=== PATIENT | male | born 1960 | race Caucasian/White ===

== ENCOUNTER 2017-08-13 13:53 | Inpatient (IN) | payer OTHER ==
[2017-08-13] VITALS (12 sets, daily range): BP systolic 136–204; BP diastolic 71–97; PULSE 83–130; RESP 14–21; TEMP 97.9–98.6; O2SAT 94–100
[~2017-08-13] VITALS: Ht 175.3 cm; Wt 125.3 kg
[2017-08-13] MEDS ORDERED: ceFAZolin 2 GM PREMIX 50 ML IV ONE (14:15)
[2017-08-13] MEDS ORDERED: SODIUM CHLOR 0.9% 1000 ML INJ 1,000 ML IV SCH (14:15)
[2017-08-13] MEDS ORDERED: HYDROmorphone HCL PF 1 MG/ML VIAL IVS ONE (14:15)
[2017-08-13] MEDS ORDERED: ONDANSETRON HCL 4 MG/2 ML VIAL IVP ONE (14:15)
[2017-08-13] MEDS ORDERED: TETANUS/DIPHTHERIA TOXOID ADULT 0.5 ML VIAL IM ONE (14:15)
[2017-08-13] MEDS ORDERED: SODIUM CHLORIDE 0.9% FLUSH 10 ML FLUSH IV FLUSH PRN (14:15)
[2017-08-13] MEDS ORDERED: KETAMINE HCL 500 MG/10 ML VIAL OTHER STA (14:15)
[2017-08-13] MEDS ORDERED: HYDROmorphone HCL PF 2 MG/ML VIAL IV ONE (14:45)
[2017-08-13 14:57] LABS: AUTOMATED NEUTROPHIL # 6.4 TH/MM3 (1.8-7.7); BASOPHIL # 0.1 TH/MM3 (0-0.2); BASOPHIL % 0.6 % (0.0-2.0); EOSINOPHIL # 0.1 TH/MM3 (0-0.4); EOSINOPHIL % 1.4 % (0.0-4.0); HEMATOCRIT 22.5 % (39.0-51.0); LYMPH % 22.8 % (9.0-44.0); LYMPHOCYTE # 2.1 TH/MM3 (1.0-4.8); MEAN CELL VOLUME 59.7 FL (80.0-100.0); MEAN CORPUSCULAR HEMOGLOBIN 17.5 PG (27.0-34.0); MEAN PLATELET VOLUME 9.1 FL (7.0-11.0); MONO % 6.4 % (0.0-8.0); MONOCYTE # 0.6 TH/MM3 (0-0.9); NEUT % 68.8 % (16.0-70.0); PLATELET COUNT 384 TH/MM3 (150-450); RED BLOOD COUNT 3.77 MIL/MM3 (4.50-5.90); RED CELL DISTRIBUTION WIDTH 19.3 % (11.6-17.2); WHITE BLOOD COUNT 9.3 TH/MM3 (4.0-11.0)
[2017-08-13] MEDS ORDERED: CEFAZOLIN IV ONE (15:00)
[2017-08-13] MEDS ORDERED: NS IV ONE (15:00)
[2017-08-13 15:26] LABS: MEAN CORPUSCULAR HGB CONC 29.3 % (32.0-36.0)
[2017-08-13 15:29] LABS: HEMOGLOBIN 6.6 GM/DL (13.0-17.0)
[2017-08-13] MEDS ORDERED: SODIUM CHLOR 0.9% 250 ML INJ 250 ML IV ONE (15:30)
[2017-08-13 15:35] LABS: ALBUMIN 3.9 GM/DL (3.4-5.0); ALT (GPT) 19 U/L (12-78); AST (GOT) 21 U/L (15-37); BICARBONATE 21.7 MEQ/L (21.0-32.0); BLOOD UREA NITROGEN 15 MG/DL (7-18); CALCIUM 9.2 MG/DL (8.5-10.1); CHLORIDE 104 MEQ/L (98-107); CREATININE 1.12 MG/DL (0.60-1.30); GLOMERULAR FILTRATION RATE 68 ML/MIN (>89); GLUCOSE,RANDOM 233 MG/DL (74-106); SODIUM (NA) 137 MEQ/L (136-145)
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
[2017-08-13 15:53] LABS: ALKALINE PHOSPHATASE 73 U/L (45-117); TOTAL BILIRUBIN ADULT 0.6 MG/DL (0.2-1.0); TOTAL PROTEIN 7.7 GM/DL (6.4-8.2); TROPONIN I LESS THAN 0.02 NG/ML (0.02-0.05)
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
[2017-08-13] MEDS ORDERED: COZA100T PO (16:50)
[2017-08-13] MEDS ORDERED: METF1000 PO (16:50)
[2017-08-13] MEDS ORDERED: GLYB5TAB3 PO (16:50)
[2017-08-13] MEDS ORDERED: PRAV40TA PO (16:50)
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
[2017-08-13] MEDS ORDERED: HYDROmorphone HCL PF 1 MG/ML VIAL IV PUSH ONE (18:15)
[2017-08-13] MEDS ORDERED: IOHEXOL 350 MG/ML 10 ML VIAL (for RAD DIAG) IVCONTRAST ONE (18:22)
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
[2017-08-13 19:37] LABS: MAGNESIUM 1.4 MG/DL (1.5-2.5)
[2017-08-13] MEDS ORDERED: GLUCAGON 1 MG/ML VIAL OTHER PRN (20:45)
[2017-08-13] MEDS ORDERED: NALOXONE HCL 0.4 MG/ML AMP IV PUSH PRN (20:45)
[2017-08-13] MEDS ORDERED: DEXTROSE 50% IN WATER 50 ML VIAL(D50) IV PUSH PRN (20:45)
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
[2017-08-13] MEDS: SODIUM CHLORIDE 0.9% FLUSH 10 ML FLUSH IV FLUSH SCH (21:00)
[2017-08-13] MEDS ORDERED: ONDANSETRON HCL 4 MG/2 ML VIAL IVP PRN (22:00)
[2017-08-13] MEDS ORDERED: ACETAMINOPHEN 325 MG TAB PO PRN (22:00)
[2017-08-13] MEDS ORDERED: BISACODYL 10 MG SUPP RECTAL PRN (22:00)
[2017-08-13] MEDS ORDERED: SENNOSIDES 8.6 MG TAB PO PRN (22:00)
[2017-08-13] MEDS: DOCUSATE SODIUM 50 MG/SENNA 8.6 MG TAB PO SCH (22:00)
[2017-08-13] MEDS: INSULIN ASPART SUPPLEMENTAL SCALE SQ SCH (22:00)
[2017-08-13] MEDS: HYDROmorphone HCL PF 2 MG/ML VIAL IV PUSH PRN (22:04)
[2017-08-13] MEDS: MAGNESIUM SULFATE 1 GM PREMIX 100 ML IV SCH (22:29)
[2017-08-13] MEDS: SODIUM CHLOR 0.9% 1000 ML INJ 1,000 ML IV SCH (22:29)
[2017-08-14] MEDS: MAGNESIUM SULFATE 1 GM PREMIX 100 ML IV SCH (00:27)
[2017-08-14] MEDS: CEPHALEXIN MONOHYDRATE 500 MG CAP PO SCH ×4 (00:27→17:49)
[2017-08-14 01:04] VITALS: BP 172/81; PULSE 116; RESP 18; TEMP 97.8; O2SAT 97
[2017-08-14] MEDS: HYDROmorphone HCL PF 2 MG/ML VIAL IV PUSH PRN ×5 (01:07→21:35)
[2017-08-14] MEDS ORDERED: HYDROmorphone HCL PF 2 MG/ML VIAL IV ONE (02:00)
[2017-08-14 05:10] VITALS: BP 168/80; PULSE 116; RESP 18; TEMP 97.9; O2SAT 98
[2017-08-14] MEDS: SODIUM CHLOR 0.9% 1000 ML INJ 1,000 ML IV SCH ×3 (05:12→22:00)
[2017-08-14 06:11] LABS: AUTOMATED NEUTROPHIL # 7.7 TH/MM3 (1.8-7.7); BASOPHIL # 0.1 TH/MM3 (0-0.2); BASOPHIL % 0.6 % (0.0-2.0); EOSINOPHIL # 0.1 TH/MM3 (0-0.4); EOSINOPHIL % 0.8 % (0.0-4.0); HEMATOCRIT 27.4 % (39.0-51.0); HEMOGLOBIN 8.5 GM/DL (13.0-17.0); LYMPH % 17.3 % (9.0-44.0); LYMPHOCYTE # 1.8 TH/MM3 (1.0-4.8); MEAN CELL VOLUME 64.5 FL (80.0-100.0); MEAN PLATELET VOLUME 8.8 FL (7.0-11.0); MONO % 8.6 % (0.0-8.0); MONOCYTE # 0.9 TH/MM3 (0-0.9); NEUT % 72.7 % (16.0-70.0); PLATELET COUNT 360 TH/MM3 (150-450); RED BLOOD COUNT 4.24 MIL/MM3 (4.50-5.90); RED CELL DISTRIBUTION WIDTH 23.3 % (11.6-17.2); WHITE BLOOD COUNT 10.6 TH/MM3 (4.0-11.0)
[2017-08-14 07:03] LABS: ALBUMIN 3.9 GM/DL (3.4-5.0); ALKALINE PHOSPHATASE 79 U/L (45-117); ALT (GPT) 18 U/L (12-78); AST (GOT) 15 U/L (15-37); BICARBONATE 24.2 MEQ/L (21.0-32.0); BLOOD UREA NITROGEN 12 MG/DL (7-18); CALCIUM 8.6 MG/DL (8.5-10.1); CHLORIDE 105 MEQ/L (98-107); CREATININE 0.84 MG/DL (0.60-1.30); GLOMERULAR FILTRATION RATE 94 ML/MIN (>89); GLUCOSE,RANDOM 185 MG/DL (74-106); SODIUM (NA) 140 MEQ/L (136-145); TOTAL BILIRUBIN ADULT 0.7 MG/DL (0.2-1.0); TOTAL PROTEIN 7.8 GM/DL (6.4-8.2); TROPONIN I LESS THAN 0.02 NG/ML (0.02-0.05)
[2017-08-14 08:19] VITALS: BP 170/79; PULSE 112; RESP 18; TEMP 98.1; O2SAT 93
[2017-08-14] MEDS: DOCUSATE SODIUM 50 MG/SENNA 8.6 MG TAB PO SCH ×2 (08:22→20:20)
[2017-08-14] MEDS: PRAVASTATIN SOD 40 MG TAB PO SCH (08:23)
[2017-08-14] MEDS: INSULIN ASPART SUPPLEMENTAL SCALE SQ SCH ×4 (08:23→21:00)
[2017-08-14] MEDS: LOSARTAN 50 MG TAB PO SCH (08:23)
[2017-08-14] MEDS: SODIUM CHLORIDE 0.9% FLUSH 10 ML FLUSH IV FLUSH SCH ×2 (08:24→21:00)
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
[2017-08-14 12:53] VITALS: BP 152/59; PULSE 105; RESP 20; TEMP 98; O2SAT 95
[2017-08-14 13:18] LABS: INTERNATIONAL NORMALIZED RATIO 1.1 RATIO; PROTHROMBIN TIME - PATIENT 11.4 SEC (9.8-11.6)
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
[2017-08-14 17:56] VITALS: BP 146/68; PULSE 114; RESP 20; TEMP 98.1; O2SAT 96
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
[2017-08-14 21:51] VITALS: BP 187/84; PULSE 116; RESP 16; TEMP 99.1; O2SAT 97
[2017-08-15] VITALS (7 sets, daily range): BP systolic 137–178; BP diastolic 65–83; PULSE 105–114; RESP 14–18; TEMP 98–98.6; O2SAT 93–99
[2017-08-15] MEDS: HYDROmorphone HCL PF 2 MG/ML VIAL IV PUSH PRN ×7 (00:46→22:03)
[2017-08-15] MEDS: CEPHALEXIN MONOHYDRATE 500 MG CAP PO SCH ×4 (05:51→18:19)
[2017-08-15] MEDS: SODIUM CHLORIDE 0.9% FLUSH 10 ML FLUSH IV FLUSH SCH ×2 (08:27→20:03)
[2017-08-15] MEDS: PRAVASTATIN SOD 40 MG TAB PO SCH (08:27)
[2017-08-15] MEDS: LOSARTAN 50 MG TAB PO SCH (08:27)
[2017-08-15] MEDS: DOCUSATE SODIUM 50 MG/SENNA 8.6 MG TAB PO SCH ×2 (08:29→20:03)
[2017-08-15] MEDS: INSULIN ASPART SUPPLEMENTAL SCALE SQ SCH ×4 (09:17→21:14)
--- NOTE | 2017-08-15 11:42 | EKG ---
Date Performed: 08/13/2017 Time Performed: 19:10:23 PTAGE: 57 years EKG: SINUS TACHYCARDIA ABNORMAL QRS-T ANGLE ABNORMAL ECG NO PREVIOUS TRACING Minimal nonspecific inferior T-wave changes DOCTOR: Paula Peters Interpretating Date/Time 08/15/2017 11:41:42
--- NOTE | 2017-08-15 11:43 | EKG ---
Date Performed: 08/14/2017 Time Performed: 02:49:57 PTAGE: 57 years EKG: SINUS TACHYCARDIA MODERATE INTRAVENTRICULAR CONDUCTION DELAY ABNORMAL QRS-T ANGLE ABNORMAL ECG PREVIOUS TRACING : 08/13/2017 20.50 Minimal nonspecific inferior T-wave changes. No significant serial change from the prior tracing. DOCTOR: Paula Peters Interpretating Date/Time 08/15/2017 11:42:39
--- NOTE | 2017-08-15 11:43 | EKG ---
Date Performed: 08/13/2017 Time Performed: 20:50:42 PTAGE: 57 years EKG: SINUS TACHYCARDIA ABNORMAL RHYTHM ECG PREVIOUS TRACING : 08/13/2017 19.10 Minimal nonspecific inferior T-wave changes. Since prior tr acing, no significant serial changes. DOCTOR: Paula Peters Interpretating Date/Time 08/15/2017 11:42:11
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
[2017-08-15 12:43] LABS: AUTOMATED NEUTROPHIL # 7.4 TH/MM3 (1.8-7.7); BASOPHIL # 0.1 TH/MM3 (0-0.2); BASOPHIL % 0.7 % (0.0-2.0); EOSINOPHIL # 0.1 TH/MM3 (0-0.4); EOSINOPHIL % 0.7 % (0.0-4.0); HEMATOCRIT 24.6 % (39.0-51.0); HEMOGLOBIN 7.5 GM/DL (13.0-17.0); LYMPH % 14.3 % (9.0-44.0); LYMPHOCYTE # 1.4 TH/MM3 (1.0-4.8); MEAN CELL VOLUME 63.6 FL (80.0-100.0); MEAN CORPUSCULAR HEMOGLOBIN 19.5 PG (27.0-34.0); MEAN CORPUSCULAR HGB CONC 30.7 % (32.0-36.0); MEAN PLATELET VOLUME 8.6 FL (7.0-11.0); MONO % 10.2 % (0.0-8.0); NEUT % 74.1 % (16.0-70.0); PLATELET COUNT 316 TH/MM3 (150-450); RED BLOOD COUNT 3.87 MIL/MM3 (4.50-5.90); RED CELL DISTRIBUTION WIDTH 23.9 % (11.6-17.2)
[2017-08-15 13:15] LABS: ALBUMIN 3.4 GM/DL (3.4-5.0); BICARBONATE 28.1 MEQ/L (21.0-32.0); CALCIUM 8.6 MG/DL (8.5-10.1); CREATININE 0.78 MG/DL (0.60-1.30); MAGNESIUM 1.9 MG/DL (1.5-2.5)
--- NOTE | 2017-08-15 14:14 | OTSOAPIP ---
RECEIVED OCCUPATIONAL THERAPY ORDERS FROM DR. DOWD. ATTEMPTED TO SEE PATIENT TWICE. ON FIRST ATTEMPT, PATIENT HAD JUST TRANSFERRED TO ANOTHER ROOM. ON ARRIVAL TO NEW ROOM, PATIENT IS BEING TAKEN OFF FLOOR FOR CT SCAN. WILL ATTEMPT AGAIN LATER ABLE, OTHERWISE WILL ATTEMPT TOMORROW FOR EVALUATION. INTERDISCIPLINARY COMMUNICATION: REVIEWED ELECTRONIC MEDICAL RECORD Therapist: Victoria Miguel, OTR/L Signature on file
--- NOTE | 2017-08-15 14:57 | RADRPT ---
EXAM DATE/TIME: 08/15/2017 14:11 [facility] COMPARISON: No previous studies available for comparison. INDICATIONS : Left 5th finger pain due to trauma. MEDICAL HISTORY : None. SURGICAL HISTORY : None. ENCOUNTER: Subsequent ACUITY: 4 - 6 days PAIN SCORE: 10/10 LOCATION: Left 5th finger. FINDINGS: There is incomplete evaluation of the 5th digit due to superimposition of the other digits and flexio n of the 4th and 5th digits. On the lateral view, there is a questionable fracture lucency seen in t he epiphysis which cannot be confirmed on the other images. There is moderate dorsal soft tissue swe lling about the metacarpal region and there are several small punctate densities in the soft tissues dorsal to the distal metacarpal. CONCLUSION: 1. Flexion deformity of the 5th digit with incomplete evaluation of the distal and middle phalanx. C annot exclude fracture on the basis of this examination. 2. Possible small radiopaque foreign bodies in the dorsal soft tissues superficial to the distal meta carpals. Toribio Morel MD on August 15, 2017 at 14:52 Board Certified Radiologist. This report was verified electronically.
--- NOTE | 2017-08-15 15:17 | RADRPT ---
EXAM DATE/TIME: 08/15/2017 14:16 [facility] COMPARISON: No previous studies available for comparison. INDICATIONS : Joint pain in elbow due to trauma MEDICAL HISTORY : None. SURGICAL HISTORY : None. ENCOUNTER: Initial ACUITY: 4 - 6 days PAIN SCORE: 9/10 LOCATION: Left entire elbow FINDINGS: Multiple view examination of the left elbow demonstrates no soft tissue swelling, joint effusion, or fracture. Spurring of the olecranon process. The osseous structures are in normal alignment. Bony m ineralization is normal. CONCLUSION: No acute abnormality. Toribio Garcia Jr., MD on August 15, 2017 at 15:13 Board Certified Radiologist. This report was verified electronically.
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
[2017-08-15 17:34] LABS: HEMOGLOBIN A1C 7.9 % (4.3-6.0)
[2017-08-15] MEDS: SODIUM CHLOR 0.9% 1000 ML INJ 1,000 ML IV SCH (18:20)
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
[2017-08-15] MEDS: PANTOPRAZOLE SOD 40 MG DELAYED RELEASE TAB PO SCH (20:03)
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
[2017-08-16] VITALS: BP 172/77; PULSE 105; RESP 18; TEMP 98.4; O2SAT 98
[2017-08-16] MEDS: CEPHALEXIN MONOHYDRATE 500 MG CAP PO SCH ×4 (01:11→18:00)
[2017-08-16] MEDS: HYDROmorphone HCL PF 2 MG/ML VIAL IV PUSH PRN ×5 (01:13→16:00)
[2017-08-16 08:00] VITALS: BP 169/78; PULSE 110; RESP 18; TEMP 98.6; O2SAT 100
[2017-08-16] MEDS: INSULIN ASPART SUPPLEMENTAL SCALE SQ SCH ×4 (08:39→20:15)
[2017-08-16] MEDS: SODIUM CHLORIDE 0.9% FLUSH 10 ML FLUSH IV FLUSH SCH ×2 (08:39→20:18)
[2017-08-16] MEDS: PANTOPRAZOLE SOD 40 MG DELAYED RELEASE TAB PO SCH ×2 (08:39→20:15)
[2017-08-16] MEDS: DOCUSATE SODIUM 50 MG/SENNA 8.6 MG TAB PO SCH ×2 (08:39→20:14)
[2017-08-16] MEDS: PRAVASTATIN SOD 40 MG TAB PO SCH (08:40)
[2017-08-16] MEDS: LOSARTAN 50 MG TAB PO SCH (08:40)
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
[2017-08-16 12:00] VITALS: BP 155/79; PULSE 127; RESP 16; TEMP 98; O2SAT 100
[2017-08-16] MEDS: GENTAMICIN SULFATE 0.1% OINT 15 GM TUBE TOPICAL SCH (13:13)
[2017-08-16] MEDS ORDERED: oxyCODONE/ACETAMINOPHEN 7.5 MG/325 MG TAB PO PRN (14:00)
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
[2017-08-16] MEDS: oxyCODONE/ACETAMINOPHEN 10 MG/325 MG TAB PO PRN ×2 (14:59→20:15)
[2017-08-16 20:00] VITALS: BP 145/64; PULSE 125; RESP 21; TEMP 99.5; O2SAT 94
[2017-08-16] MEDS: MAGNESIUM HYDROXIDE SUSP 30 ML CUP PO PRN (20:14)
[2017-08-17] VITALS: BP 137/66; PULSE 119; RESP 20; TEMP 99.2; O2SAT 96
[2017-08-17] MEDS: CEPHALEXIN MONOHYDRATE 500 MG CAP PO SCH ×4 (00:42→17:59)
[2017-08-17] MEDS: HYDROmorphone HCL PF 2 MG/ML VIAL IV PUSH PRN ×3 (00:44→15:40)
[2017-08-17 04:00] VITALS: BP 140/62; PULSE 112; RESP 20; TEMP 98.5; O2SAT 94
[2017-08-17 08:00] VITALS: BP 129/67; PULSE 108; RESP 20; TEMP 98.5; O2SAT 94
[2017-08-17] MEDS: PRAVASTATIN SOD 40 MG TAB PO SCH (08:34)
[2017-08-17] MEDS: PANTOPRAZOLE SOD 40 MG DELAYED RELEASE TAB PO SCH ×2 (08:34→21:17)
[2017-08-17] MEDS: DOCUSATE SODIUM 50 MG/SENNA 8.6 MG TAB PO SCH ×2 (08:34→21:18)
[2017-08-17] MEDS: LOSARTAN 50 MG TAB PO SCH (08:34)
[2017-08-17] MEDS: oxyCODONE/ACETAMINOPHEN 10 MG/325 MG TAB PO PRN ×3 (08:35→18:00)
[2017-08-17] MEDS: INSULIN ASPART SUPPLEMENTAL SCALE SQ SCH ×4 (09:06→21:00)
[2017-08-17] MEDS: GENTAMICIN SULFATE 0.1% OINT 15 GM TUBE TOPICAL SCH (09:07)
[2017-08-17] MEDS: SODIUM CHLORIDE 0.9% FLUSH 10 ML FLUSH IV FLUSH SCH ×2 (09:11→21:17)
[2017-08-17] MEDS: SODIUM CHLORIDE 0.9% FLUSH 10 ML FLUSH IV FLUSH PRN ×2 (10:11→15:41)
[2017-08-17 12:00] VITALS: BP 130/56; PULSE 108; RESP 20; TEMP 98.1; O2SAT 95
[2017-08-17] MEDS: MAGNESIUM HYDROXIDE SUSP 30 ML CUP PO PRN (12:35)
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
[2017-08-17 16:00] VITALS: BP 130/63; PULSE 118; RESP 20; TEMP 98.7; O2SAT 95
[2017-08-17 20:17] VITALS: BP 146/62; PULSE 110; RESP 19; TEMP 98.1; O2SAT 92
[2017-08-18] MEDS: CEPHALEXIN MONOHYDRATE 500 MG CAP PO SCH ×4 (00:09→18:13)
[2017-08-18] MEDS: oxyCODONE/ACETAMINOPHEN 10 MG/325 MG TAB PO PRN ×6 (00:12→20:02)
[2017-08-18 00:37] VITALS: BP 130/62; PULSE 106; RESP 18; TEMP 97.9; O2SAT 94
[2017-08-18 04:28] VITALS: BP 132/66; PULSE 100; RESP 18; TEMP 97.8; O2SAT 99
[2017-08-18] MEDS: LOSARTAN 50 MG TAB PO SCH (07:47)
[2017-08-18] MEDS: PRAVASTATIN SOD 40 MG TAB PO SCH (07:47)
[2017-08-18] MEDS: PANTOPRAZOLE SOD 40 MG DELAYED RELEASE TAB PO SCH ×2 (07:48→20:01)
[2017-08-18] MEDS: SODIUM CHLORIDE 0.9% FLUSH 10 ML FLUSH IV FLUSH SCH ×2 (07:49→20:02)
[2017-08-18] MEDS: GENTAMICIN SULFATE 0.1% OINT 15 GM TUBE TOPICAL SCH (07:50)
[2017-08-18] MEDS: DOCUSATE SODIUM 50 MG/SENNA 8.6 MG TAB PO SCH ×2 (07:51→20:00)
[2017-08-18 08:00] VITALS: BP 117/77; PULSE 111; RESP 20; TEMP 98.4; O2SAT 95
[2017-08-18] MEDS: INSULIN ASPART SUPPLEMENTAL SCALE SQ SCH ×4 (09:22→20:02)
[2017-08-18 12:00] VITALS: BP 151/65; PULSE 116; RESP 20; TEMP 97.6; O2SAT 97
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
[2017-08-18 16:00] VITALS: BP 153/74; PULSE 104; RESP 20; TEMP 98.5; O2SAT 97
[2017-08-18] MEDS: glyBURIDE 5 MG TAB PO SCH (16:01)
[2017-08-18] MEDS: HYDROmorphone HCL PF 2 MG/ML VIAL IV PUSH PRN (16:37)
[2017-08-18 17:20] LABS: AUTOMATED NEUTROPHIL # 7.4 TH/MM3 (1.8-7.7); BASOPHIL # 0.1 TH/MM3 (0-0.2); BASOPHIL % 0.6 % (0.0-2.0); EOSINOPHIL # 0.1 TH/MM3 (0-0.4); EOSINOPHIL % 1.3 % (0.0-4.0); HEMATOCRIT 25.6 % (39.0-51.0); HEMOGLOBIN 7.7 GM/DL (13.0-17.0); LYMPH % 17.8 % (9.0-44.0); LYMPHOCYTE # 1.9 TH/MM3 (1.0-4.8); MEAN CELL VOLUME 63.8 FL (80.0-100.0); MEAN CORPUSCULAR HEMOGLOBIN 19.3 PG (27.0-34.0); MEAN CORPUSCULAR HGB CONC 30.2 % (32.0-36.0); MEAN PLATELET VOLUME 8.9 FL (7.0-11.0); MONO % 9.1 % (0.0-8.0); MONOCYTE # 0.9 TH/MM3 (0-0.9); NEUT % 71.2 % (16.0-70.0); PLATELET COUNT 302 TH/MM3 (150-450); RED BLOOD COUNT 4.02 MIL/MM3 (4.50-5.90); RED CELL DISTRIBUTION WIDTH 24.3 % (11.6-17.2); WHITE BLOOD COUNT 10.4 TH/MM3 (4.0-11.0)
[2017-08-18 17:43] LABS: TROPONIN I LESS THAN 0.02 NG/ML (0.02-0.05)
[2017-08-18 19:45] VITALS: BP 151/72; PULSE 109; RESP 17; TEMP 98.2; O2SAT 98
--- NOTE | 2017-08-18 20:15 | EKG ---
Date Performed: 08/17/2017 Time Performed: 14:21:40 PTAGE: 57 years EKG: SINUS TACHYCARDIA MODERATE INTRAVENTRICULAR CONDUCTION DELAY ABNORMAL RHYTHM ECG Compared t o prior electrocardiogram, Nonspecific T wave changes are less marked PREVIOUS TRACING : 08/14/2017 02.49 DOCTOR: Raimundo Pizarro Interpretating Date/Time 08/18/2017 20:14:55
[2017-08-19] VITALS: BP 135/69; PULSE 93; RESP 17; TEMP 98; O2SAT 100
[2017-08-19] MEDS: CEPHALEXIN MONOHYDRATE 500 MG CAP PO SCH ×4 (00:01→17:08)
[2017-08-19] MEDS: oxyCODONE/ACETAMINOPHEN 10 MG/325 MG TAB PO PRN ×5 (00:02→21:23)
[2017-08-19 08:00] VITALS: BP 154/79; PULSE 96; RESP 16; TEMP 97.7; O2SAT 97
[2017-08-19] MEDS: INSULIN ASPART SUPPLEMENTAL SCALE SQ SCH ×4 (08:38→20:31)
[2017-08-19] MEDS: MAGNESIUM HYDROXIDE SUSP 30 ML CUP PO PRN ×2 (08:39→20:31)
[2017-08-19] MEDS: SODIUM CHLORIDE 0.9% FLUSH 10 ML FLUSH IV FLUSH SCH ×2 (08:39→20:32)
[2017-08-19] MEDS: PANTOPRAZOLE SOD 40 MG DELAYED RELEASE TAB PO SCH ×2 (08:39→20:31)
[2017-08-19] MEDS: LOSARTAN 50 MG TAB PO SCH (08:39)
[2017-08-19] MEDS: DOCUSATE SODIUM 50 MG/SENNA 8.6 MG TAB PO SCH ×2 (08:39→20:31)
[2017-08-19] MEDS: PRAVASTATIN SOD 40 MG TAB PO SCH (08:39)
[2017-08-19] MEDS: glyBURIDE 5 MG TAB PO SCH (08:39)
[2017-08-19] MEDS: GENTAMICIN SULFATE 0.1% OINT 15 GM TUBE TOPICAL SCH (08:40)
[2017-08-19 11:58] VITALS: BP 145/66; PULSE 105; RESP 20; TEMP 98.8; O2SAT 96
[2017-08-19 12:46] LABS: BICARBONATE 29.1 MEQ/L (21.0-32.0); BLOOD UREA NITROGEN 15 MG/DL (7-18); CALCIUM 8.9 MG/DL (8.5-10.1); CHLORIDE 101 MEQ/L (98-107); CREATININE 0.81 MG/DL (0.60-1.30); GLOMERULAR FILTRATION RATE 98 ML/MIN (>89); GLUCOSE,RANDOM 211 MG/DL (74-106); MAGNESIUM 1.9 MG/DL (1.5-2.5); SODIUM (NA) 136 MEQ/L (136-145)
[2017-08-19 12:50] LABS: TROPONIN I LESS THAN 0.02 NG/ML (0.02-0.05)
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
[2017-08-19 15:44] VITALS: BP 135/63; PULSE 113; RESP 20; TEMP 98.1; O2SAT 96
[2017-08-19 18:26] VITALS: BP 152/72; PULSE 111; RESP 15; TEMP 98.1; O2SAT 95
[2017-08-20] MEDS: CEPHALEXIN MONOHYDRATE 500 MG CAP PO SCH ×4 (00:15→17:13)
[2017-08-20 00:21] VITALS: BP 164/68; PULSE 113; RESP 20; TEMP 97.5; O2SAT 98
[2017-08-20] MEDS: oxyCODONE/ACETAMINOPHEN 10 MG/325 MG TAB PO PRN ×4 (03:49→23:15)
[2017-08-20] MEDS: LACTULOSE SYRUP 20 GM/30 ML CUP PO PRN ×2 (06:01→08:15)
[2017-08-20 07:56] VITALS: BP 153/69; PULSE 105; RESP 18; TEMP 98.8; O2SAT 95
[2017-08-20] MEDS: glyBURIDE 5 MG TAB PO SCH (08:16)
[2017-08-20] MEDS: DOCUSATE SODIUM 50 MG/SENNA 8.6 MG TAB PO SCH ×2 (08:16→20:28)
[2017-08-20] MEDS: PRAVASTATIN SOD 40 MG TAB PO SCH (08:16)
[2017-08-20] MEDS: LOSARTAN 50 MG TAB PO SCH (08:16)
[2017-08-20] MEDS: GENTAMICIN SULFATE 0.1% OINT 15 GM TUBE TOPICAL SCH (08:17)
[2017-08-20] MEDS: INSULIN ASPART SUPPLEMENTAL SCALE SQ SCH ×4 (08:17→20:29)
[2017-08-20] MEDS: SODIUM CHLORIDE 0.9% FLUSH 10 ML FLUSH IV FLUSH SCH ×2 (08:17→20:30)
[2017-08-20] MEDS: PANTOPRAZOLE SOD 40 MG DELAYED RELEASE TAB PO SCH ×2 (08:18→20:28)
[2017-08-20 12:00] VITALS: BP 148/73; PULSE 110; RESP 18; TEMP 98.2; O2SAT 97
[2017-08-20] MEDS: IRON SUCROSE INJ 200 MG in SODIUM CHLORIDE 0.9% INJ 100 ML IV SCH (13:02)
[2017-08-20 14:08] LABS: AUTOMATED NEUTROPHIL # 9.6 TH/MM3 (1.8-7.7); BASOPHIL # 0.1 TH/MM3 (0-0.2); BASOPHIL % 0.5 % (0.0-2.0); EOSINOPHIL # 0.1 TH/MM3 (0-0.4); EOSINOPHIL % 0.8 % (0.0-4.0); HEMATOCRIT 26.4 % (39.0-51.0); LYMPH % 12.2 % (9.0-44.0); LYMPHOCYTE # 1.5 TH/MM3 (1.0-4.8); MEAN CELL VOLUME 62.2 FL (80.0-100.0); MEAN CORPUSCULAR HEMOGLOBIN 18.9 PG (27.0-34.0); MEAN CORPUSCULAR HGB CONC 30.4 % (32.0-36.0); MEAN PLATELET VOLUME 8.7 FL (7.0-11.0); MONO % 7.9 % (0.0-8.0); NEUT % 78.6 % (16.0-70.0); PLATELET COUNT 355 TH/MM3 (150-450); RED BLOOD COUNT 4.25 MIL/MM3 (4.50-5.90); RED CELL DISTRIBUTION WIDTH 24.1 % (11.6-17.2); WHITE BLOOD COUNT 12.2 TH/MM3 (4.0-11.0)
[2017-08-20 14:36] LABS: IRON (FE) 68 MCG/DL (65-175); TOTAL IRON BINDING CAPACITY 400 MCG/DL (250-450)
[2017-08-20 16:00] VITALS: BP 115/58; PULSE 100; RESP 18; TEMP 97.5; O2SAT 95
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
[2017-08-20] MEDS ORDERED: WHEEMIS3 (17:41)
[2017-08-20] MEDS: CLINDAMYCIN 150 MG CAP PO SCH ×2 (18:52→23:14)
[2017-08-20 20:01] VITALS: BP 125/58; PULSE 106; RESP 16; TEMP 98.5
[2017-08-20] MEDS: LACTOBACILLUS ACIDOPHILUS TAB PO SCH (20:28)
[2017-08-20] MEDS: CIPROFLOXACIN 500 MG TAB PO SCH (20:28)
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
[2017-08-20] MEDS: INSULIN DETEMIR 100 UNITS/ML VIAL SQ SCH (23:21)
[2017-08-21] VITALS (7 sets, daily range): BP systolic 128–156; BP diastolic 63–79; PULSE 92–112; RESP 18–20; TEMP 97.3–98; O2SAT 94–98
[2017-08-21] MEDS: CLINDAMYCIN 150 MG CAP PO SCH ×4 (05:56→23:59)
[2017-08-21] MEDS: oxyCODONE/ACETAMINOPHEN 10 MG/325 MG TAB PO PRN ×4 (05:58→22:34)
[2017-08-21] MEDS: INSULIN ASPART SUPPLEMENTAL SCALE SQ SCH ×4 (08:00→20:50)
[2017-08-21] MEDS ORDERED: CIPR-9 PO (08:30)
[2017-08-21] MEDS ORDERED: CLIN150 PO (08:31)
[2017-08-21] MEDS ORDERED: OXYC1TAB36 PO (08:31)
[2017-08-21] MEDS ORDERED: NOVOLOGSS SQ (08:33)
[2017-08-21] MEDS: INSULIN DETEMIR 100 UNITS/ML VIAL SQ SCH ×2 (09:00→20:49)
[2017-08-21] MEDS: GENTAMICIN SULFATE 0.1% OINT 15 GM TUBE TOPICAL SCH (09:00)
[2017-08-21] MEDS: SODIUM CHLORIDE 0.9% FLUSH 10 ML FLUSH IV FLUSH SCH ×2 (09:00→22:33)
[2017-08-21] MEDS: PANTOPRAZOLE SOD 40 MG DELAYED RELEASE TAB PO SCH ×2 (11:29→20:49)
[2017-08-21] MEDS: LOSARTAN 50 MG TAB PO SCH (11:29)
[2017-08-21] MEDS: PRAVASTATIN SOD 40 MG TAB PO SCH (11:29)
[2017-08-21] MEDS: DOCUSATE SODIUM 50 MG/SENNA 8.6 MG TAB PO SCH ×2 (11:29→20:48)
[2017-08-21] MEDS: glyBURIDE 5 MG TAB PO SCH (11:29)
[2017-08-21] MEDS: LACTOBACILLUS ACIDOPHILUS TAB PO SCH ×2 (11:30→20:48)
[2017-08-21] MEDS: CIPROFLOXACIN 500 MG TAB PO SCH ×2 (11:30→20:49)
[2017-08-21 11:47] LABS: AUTOMATED NEUTROPHIL # 8.2 TH/MM3 (1.8-7.7); BASOPHIL # 0.1 TH/MM3 (0-0.2); BASOPHIL % 0.6 % (0.0-2.0); EOSINOPHIL # 0.2 TH/MM3 (0-0.4); HEMATOCRIT 26.4 % (39.0-51.0); HEMOGLOBIN 8.3 GM/DL (13.0-17.0); LYMPH % 14.7 % (9.0-44.0); LYMPHOCYTE # 1.6 TH/MM3 (1.0-4.8); MEAN CORPUSCULAR HEMOGLOBIN 19.4 PG (27.0-34.0); MEAN CORPUSCULAR HGB CONC 31.3 % (32.0-36.0); MEAN PLATELET VOLUME 8.4 FL (7.0-11.0); MONO % 7.3 % (0.0-8.0); MONOCYTE # 0.8 TH/MM3 (0-0.9); NEUT % 75.4 % (16.0-70.0); PLATELET COUNT 373 TH/MM3 (150-450); RED BLOOD COUNT 4.25 MIL/MM3 (4.50-5.90); RED CELL DISTRIBUTION WIDTH 23.9 % (11.6-17.2); WHITE BLOOD COUNT 10.9 TH/MM3 (4.0-11.0)
[2017-08-21] MEDS: IRON SUCROSE INJ 200 MG in SODIUM CHLORIDE 0.9% INJ 100 ML IV SCH (12:34)
[2017-08-21] MEDS ORDERED: LEVEMIR SQ (15:44)
[2017-08-21] MEDS ORDERED: FERR325T72 PO (15:46)
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
[2017-08-22] MEDS: oxyCODONE/ACETAMINOPHEN 10 MG/325 MG TAB PO PRN ×5 (04:20→23:25)
[2017-08-22] MEDS: CLINDAMYCIN 150 MG CAP PO SCH ×4 (05:45→23:25)
[2017-08-22 08:00] VITALS: BP 132/67; PULSE 102; RESP 18; TEMP 97.7; O2SAT 97
[2017-08-22] MEDS: INSULIN ASPART SUPPLEMENTAL SCALE SQ SCH ×4 (08:00→21:37)
[2017-08-22] MEDS: DOCUSATE SODIUM 50 MG/SENNA 8.6 MG TAB PO SCH ×2 (08:26→21:00)
[2017-08-22] MEDS: glyBURIDE 5 MG TAB PO SCH (08:26)
[2017-08-22] MEDS: PRAVASTATIN SOD 40 MG TAB PO SCH (08:26)
[2017-08-22] MEDS: LOSARTAN 50 MG TAB PO SCH (08:26)
[2017-08-22] MEDS: PANTOPRAZOLE SOD 40 MG DELAYED RELEASE TAB PO SCH ×2 (08:26→21:36)
[2017-08-22] MEDS: CIPROFLOXACIN 500 MG TAB PO SCH ×2 (08:26→21:36)
[2017-08-22] MEDS: LACTOBACILLUS ACIDOPHILUS TAB PO SCH ×2 (08:26→21:36)
[2017-08-22] MEDS: GENTAMICIN SULFATE 0.1% OINT 15 GM TUBE TOPICAL SCH (08:31)
[2017-08-22] MEDS: SODIUM CHLORIDE 0.9% FLUSH 10 ML FLUSH IV FLUSH SCH ×2 (08:32→21:37)
[2017-08-22] MEDS: INSULIN DETEMIR 100 UNITS/ML VIAL SQ SCH ×2 (08:33→21:36)
[2017-08-22 12:00] VITALS: BP 140/73; PULSE 103; RESP 18; TEMP 97.8; O2SAT 96
[2017-08-22] MEDS: IRON SUCROSE INJ 200 MG in SODIUM CHLORIDE 0.9% INJ 100 ML IV SCH (12:28)
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
[2017-08-22 16:00] VITALS: BP 157/79; PULSE 96; RESP 18; TEMP 97.9; O2SAT 97
[2017-08-22 20:00] VITALS: BP 141/62; PULSE 104; RESP 20; TEMP 98.2; O2SAT 94
[2017-08-23] VITALS: BP 133/66; PULSE 100; RESP 20; TEMP 98.4; O2SAT 96
[2017-08-23] MEDS: oxyCODONE/ACETAMINOPHEN 10 MG/325 MG TAB PO PRN ×2 (04:24→08:28)
[2017-08-23] MEDS: CLINDAMYCIN 150 MG CAP PO SCH ×2 (06:14→12:00)
[2017-08-23 07:00] VITALS: BP 140/74; PULSE 91; RESP 18; TEMP 97.1; O2SAT 95
[2017-08-23] MEDS: CIPROFLOXACIN 500 MG TAB PO SCH (08:23)
[2017-08-23] MEDS: INSULIN ASPART SUPPLEMENTAL SCALE SQ SCH ×2 (08:23→12:11)
[2017-08-23] MEDS: glyBURIDE 5 MG TAB PO SCH (08:23)
[2017-08-23] MEDS: INSULIN DETEMIR 100 UNITS/ML VIAL SQ SCH (08:23)
[2017-08-23] MEDS: LACTOBACILLUS ACIDOPHILUS TAB PO SCH (08:24)
[2017-08-23] MEDS: DOCUSATE SODIUM 50 MG/SENNA 8.6 MG TAB PO SCH (08:24)
[2017-08-23] MEDS: PANTOPRAZOLE SOD 40 MG DELAYED RELEASE TAB PO SCH (08:24)
[2017-08-23] MEDS: LOSARTAN 50 MG TAB PO SCH (08:24)
[2017-08-23] MEDS: PRAVASTATIN SOD 40 MG TAB PO SCH (08:24)
[2017-08-23] MEDS: SODIUM CHLORIDE 0.9% FLUSH 10 ML FLUSH IV FLUSH SCH (08:28)
[2017-08-23] MEDS: GENTAMICIN SULFATE 0.1% OINT 15 GM TUBE TOPICAL SCH (09:00)
[2017-08-23 12:00] VITALS: BP 150/57; PULSE 97; RESP 18; TEMP 97.8; O2SAT 96
== END 2017-08-23 14:17 | disposition home health service (06) | DRG 812 ==
LOC: NEPD 13:53 → NEDA 20:06 → NEPGCP 21:17 → N06B 08-15 09:04
PROVIDERS: ADMIT Internal Medicine; ATTEND Internal Medicine
DX: D50.9 Iron deficiency anemia, unspecified (principal); L03.116 Cellulitis of left lower limb; I10 Essential (primary) hypertension; K92.1 Melena; R55 Syncope and collapse; E83.42 Hypomagnesemia; E11.9 Type 2 diabetes mellitus without complications; S62.627A Displaced fracture of middle phalanx of left little finger, initial encounter for closed fracture; E78.5 Hyperlipidemia, unspecified; S60.512A Abrasion of left hand, initial encounter; S80.212A Abrasion, left knee, initial encounter; S80.211A Abrasion, right knee, initial encounter; S90.812A Abrasion, left foot, initial encounter; S50.312A Abrasion of left elbow, initial encounter; V89.0XXA Person injured in unspecified motor-vehicle accident, nontraffic, initial encounter; Y93.89 Activity, other specified; Y92.9 Unspecified place or not applicable; Y99.9 Unspecified external cause status; Y92.410 Unspecified street and highway as the place of occurrence of the external cause; R42 Dizziness and giddiness; R00.0 Tachycardia, unspecified; S91.202A Unspecified open wound of left great toe with damage to nail, initial encounter; S91.201A Unspecified open wound of right great toe with damage to nail, initial encounter; Z87.891 Personal history of nicotine dependence; R07.81 Pleurodynia; R53.1 Weakness; Z79.82 Long term (current) use of aspirin; Z53.29 Procedure and treatment not carried out because of patient's decision for other reasons
CPT/HCPCS: 36430; 70450; 71045; 71260; 72125; 72170; 73080; 73130; 73140; 73564; 73590; 73630; 73700; 74177; 80048; 80053; 80069; 82550; 82552; 82948; 83036; 83540; 83550; 83735; 84484; 85025; 85610; 86850; 86900; 86901; 86920; 90471; 90714; 93005; 96361; 96365; 96375; 96376; J0690; J1170; J1756; J1815; J2405; J3475; J7030; P9016; Q9967